=== PATIENT | male | born 1975 | race Caucasian/White ===

== ENCOUNTER 2022-01-14 07:56 | Emergency (ER) | payer BC ==
[~2022-01-14] VITALS: Ht 177.8 cm; Wt 136.1 kg
[~2022-01-14 07:56] MED LIST: AZITHROMYCIN250 MG PO; GUAIFENESIN DM118 ML PO; HORIZANT600 MG PO; LEVAQUIN500 MG PO; Loratadine PO; MIRAPEX0.125 MG PO; TESSALON PERLE100 MG PO; VENTOLIN HFA18 GM INH
[2022-01-14] MEDS ORDERED: KETOROLAC TROMETHAMINE 60 MG/2 ML VIAL IM ONE (08:15)
[2022-01-14 08:45] LABS: CLARITY,URINE CLEAR (CLEAR); COLOR,URINE YELLOW (YELLOW); KETONES,URINE NEGATIVE (NEGATIVE); LEUKOCYTE ESTERASE ,URINE NEGATIVE (NEGATIVE); NITRITE,URINE NEGATIVE (NEGATIVE); PROTEIN,URINE DIPSTICK NEGATIVE (NEGATIVE); URINE UROBILINOGEN 0.2 mg/dL (0.2 - 1)
[2022-01-14 08:46] LABS: BACTERIA,URINE MODERATE /HPF; EPITHELIAL CELLS,URINE FEW /LPF
[2022-01-14] MEDS ORDERED: Morphine 4mg INJECTION 4 MG/ML INJ IM STA (09:34)
[2022-01-14] MEDS ORDERED: ULTRAM 50MG50 MG PO (11:02)
[2022-01-14] MEDS ORDERED: ONDANSETRON ODT4 MG PO (11:20)
== END 2022-01-14 11:41 | disposition home or self-care (01) ==
LOC: ER 08:02
DX: M54.50 Low back pain, unspecified (principal); M62.830 Muscle spasm of back; G89.29 Other chronic pain
CPT/HCPCS: 74176; 81001; 99283; J1885; J2270

== ENCOUNTER 2024-12-04 09:06 | Emergency (ER) | payer BC ==
[~2024-12-04] VITALS: Ht 177.8 cm; Wt 145.1 kg
[~2024-12-04 09:06] MED LIST changes: +ONDANSETRON ODT4 MG PO; +ULTRAM 50MG50 MG PO
[2024-12-04 09:09] VITALS: TEMP 98.4
[2024-12-04 09:30] VITALS: PULSE 85; RESP 18
[2024-12-04] MEDS ORDERED: TERBINAFINE HC250 MG PO (09:36)
[2024-12-04] MEDS ORDERED: DOXYCYCLINE HY100 MG PO (09:37)
[2024-12-04 09:50] VITALS: BP 186/102; PULSE 83; RESP 18; O2SAT 98
== END 2024-12-04 09:50 | disposition home or self-care (01) ==
LOC: ER 09:15
DX: L98.8 Other specified disorders of the skin and subcutaneous tissue (principal); B35.0 Tinea barbae and tinea capitis; I10 Essential (primary) hypertension
CPT/HCPCS: 99282